=== PATIENT | male | born 1945 | race African-American/Black ===

== ENCOUNTER 2017-06-05 09:55 | Day surgery (SDC) | payer OTHER ==
[2017-06-01 12:13] VITALS: BMI 28.0
[2017-06-05] MEDS ORDERED: PROPOFOL 20 ML ONE ×2 (10:02)
[2017-06-05] MEDS ORDERED: LIDOCAINE HCL/PF 2% SDV 5ML VIAL ONE (11:42)
[2017-06-05 12:26] VITALS: TEMP 97.5
[2017-06-05 12:46] VITALS: BP 142/74; PULSE 72
--- NOTE | 2017-06-06 12:33 | PATH ---
Surgical Pathology Report Patient Name: LASHAY JOHNSON [facility]. Rec. #: [id number] /Age/Gender: 1945 (Age: 71) / M Account: [id number] Location: Taken: 06/05/2017 Received: 06/05/2017 Reported: 06/06/2017 Physicians: Levi Jang M.D. Specimen(s) Received BX ANTRUM Clinical History Preoperative diagnosis: Peptic ulcer disease, rule out colon cancer, abdominal pain Postoperative diagnosis: Mild gastritis Final Diagnosis STOMACH, ANTRUM, BIOPSY: SEVERE CHRONIC ACTIVE GASTRITIS. MANY ORGANISMS MORPHOLOGICALLY CONSISTENT WITH H. PYLORI IDENTIFIED WITH DIFF QUIK STAIN. Electronically Signed Jacob Mullins M.D. Gross Description Received in formalin, labeled "antrum" are 2 [place], irregular portions of soft tissue measuring 0.2 and 0.3 cm. in greatest dimension. The specimens are submitted in toto in one cassette. 06/05/201706/05/2017
== END 2017-06-05 13:17 | disposition home or self-care (01) ==
LOC: FASU-ENDO 09:55
PROVIDERS: ATTEND Internal Medicine Gastroenterology
PROC: 0DJD8ZZ Inspection of Lower Intestinal Tract, Via Natural or Artificial Opening Endoscopic (ICD-10-PCS; principal; 2017-06-05 11:48)
PROC: 0DB68ZX Excision of Stomach, Via Natural or Artificial Opening Endoscopic, Diagnostic (ICD-10-PCS; 2017-06-05 11:48)
DX: Z12.11 Encounter for screening for malignant neoplasm of colon (principal); K57.30 Diverticulosis of large intestine without perforation or abscess without bleeding; K29.50 Unspecified chronic gastritis without bleeding; B96.81 Helicobacter pylori [H. pylori] as the cause of diseases classified elsewhere; I10 Essential (primary) hypertension; E78.00 Pure hypercholesterolemia, unspecified
CPT/HCPCS: 43239; G0121; 88305-TC; 88312-TC